=== PATIENT | female | born 1950 | race Hispanic/Latino ===

== ENCOUNTER 2017-02-22 09:55 | Day surgery (SDC) | payer OTHER ==
--- NOTE | 2017-02-19 11:07 | Anesthesia Consultation ---
Anesthesia Consult and Med Hx Date of service: 02/19/17 - Airway Anesthetic Teeth Evaluation: Poor ROM Head & Neck: Adequate Mental/Hyoid Distance: Adequate Mallampati Class: Class II Intubation Access Assessment: Probably Good - Pulmonary Exam CTA: Yes - Cardiac Exam Cardiac Exam: RRR - Pre-Operative Health Status ASA Pre-Surgery Classification: ASA3 Proposed Anesthetic Plan: General - Pulmonary Hx Smoking: Yes Hx Asthma: No SOB: Yes COPD: Yes (MILD) Hx Pneumonia: No Hx Sleep Apnea: Yes - Cardiovascular System Hx Hypertension: Yes - Central Nervous System Hx Psychiatric Problems: No - Other Systems Hx Alcohol Use: No Hx Substance Use: No Hx Cancer: No
[~2017-02-22 09:55] MED LIST: ANCEF/STERILE WATER 2 GM/20 ML 2 GM/20 ML SYRINGE IV NR; MARCAINE-EPI 0.25%-1:200,000 IJ ONE; NACL 0.9% 1000 ML 1,000 ML IV SCH; PEPCID PO NR; VERSED IV NR; ZOFRAN IV PRN
[2017-02-22] MEDS ORDERED: NACL BACTERIOSTATIC INFILTRATI ONE (10:19)
[2017-02-22] MEDS ORDERED: ANCEF/STERILE WATER 2 GM/20 ML 2 GM/20 ML SYRINGE IV NR (10:30)
[2017-02-22] MEDS ORDERED: MARCAINE-EPI 0.25%-1:200,000 INFILTRATI ONE (10:55)
[2017-02-22] MEDS ORDERED: ADRENALIN ONE (10:55)
[2017-02-22] MEDS ORDERED: SUBLIMAZE ONE (11:53)
[2017-02-22] MEDS ORDERED: DIPRIVAN 10 MG/ML IV ONE (11:53)
[2017-02-22] MEDS ORDERED: XYLOCAINE MPF 2% ONE (11:53)
[2017-02-22] MEDS ORDERED: ZOFRAN ONE (11:55)
[2017-02-22] MEDS ORDERED: DECADRON ONE (11:55)
[2017-02-22] MEDS ORDERED: ADRENALIN IV ONE (12:38)
[2017-02-22] MEDS ORDERED: MARCAINE-EPI 0.25%-1:200,000 IJ ONE (12:55)
[2017-02-22] MEDS: DILAUDID IV PRN ×2 (13:20→13:33)
[2017-02-22] MEDS ORDERED: ZOFRAN IV PRN (13:30)
[2017-02-22] MEDS ORDERED: NORCO 5/325 PO PRN (13:34)
[2017-02-22] MEDS ORDERED: TORADOL IV PRN (13:34)
[2017-02-22] MEDS ORDERED: TORADOL ONE (13:41)
[2017-02-22 14:59] VITALS: BP 152/80
--- NOTE | 2017-02-22 16:07 | Post Anesthesia Evaluation ---
- Post Anesthesia Evaluation Patient Participated: Yes Airway Patent: Yes Stable Respiratory Function: Yes Nausea/Vomiting: No Temp > 96.8F: Yes Pain Manageable: Yes Adequeate Hydration: Yes Anesthesia Complications: No Block Receding Appropriately: Not Applicable Patient on Ventilator: No
--- NOTE | 2017-02-22 16:07 | Anesthesia Day of Surgery ---
Anesthesia Day of Surgery - Day of Surgery Patient Examined: Yes Patient H&P Reviewed: Yes Patient is NPO: Yes
--- NOTE | 2017-02-22 16:10 | Operative Report ---
PREOPERATIVE DIAGNOSIS: Right knee degenerative joint disease meniscal tear. POSTOPERATIVE DIAGNOSES: 1. Right knee tear, posterior horn medial meniscus - radial tear extending peripherally. 2. Complex tear of lateral meniscus, diffuse. 3. Grade 3 chondromalacia medial femoral condyle. 4. Grade 3 chondromalacia of the lateral femoral condyle. 5. Grade 3 chondromalacia of patella. 6. Grade 3 chondromalacia of trochlear groove. 7. Extensive synovitis. PROCEDURE PERFORMED: 1. Right knee arthroscopy, partial medial and lateral meniscectomy. 2. Extensive synovectomy. 3. Chondroplasty of medial femoral condyle. 4. Chondroplasty of lateral femoral condyle. 5. Chondroplasty of trochlear groove. 6. Chondroplasty of patella. SURGEON: Sumanth Bailon MD. PROPERTY OFFICER: Hosea Rankin CSA. ANESTHESIA: General. ESTIMATED BLOOD LOSS: Minimal. COMPLICATIONS: None. DESCRIPTION OF PROCEDURE: The patient underwent successful induction of anesthesia. Lower extremity was prepped and draped in usual fashion after being exsanguinated and placed in a leg fuentes. Antibiotics were pre-administered. Pre-assessment exam demonstrated findings noted through standard medial and lateral portals. Extensive synovitis was debrided tricompartmentally. Patellofemoral compartment demonstrated chondromalacia of the patella and the trochlear groove, grade 3 primarily central, general chondroplasty affecting with a Claudia surface of dressing and encountered a chondral scarring noted. The medial compartment demonstrated grade 3 chondromalacia diffusely and debrided in like manner. The meniscus demonstrated the tear of the root extending all the way to the periphery. The flaps were gently debrided to stable rim on either side. Otherwise, the majority of the meniscus well preserved. Lateral compartment demonstrated large grade 3 chondral lesion with unstable chondral flaps lateral femoral condyle and debrided of full resector in the surface. Meniscus demonstrated extensive tearing along the entire lateral horn debrided in combination of full resector surface. Next, once stable rim was achieved line preservation majority of the meniscus 70-80% throughout. Thorough examination and irrigation in the joints was carried out. Both fluoroscopy and intraoperative photos were obtained for documentation. Joints were copiously irrigated and injected with 0.25% Marcaine. Portals were closed with nylon sutures. A sterile dressing was applied. He was taken to the recovery room in satisfactory condition having tolerated the procedure well.Bottom of Form Top of Form Bottom of Form JOB# [id number] RDP/NTS
== END 2017-02-22 14:50 | disposition home or self-care (01) ==
LOC: OR 09:55
PROVIDERS: ATTEND Orthopaedic Surgery
DX: S83.221A Peripheral tear of medial meniscus, current injury, right knee, initial encounter (principal); S83.271A Complex tear of lateral meniscus, current injury, right knee, initial encounter; M65.861 Other synovitis and tenosynovitis, right lower leg; M94.261 Chondromalacia, right knee; J44.9 Chronic obstructive pulmonary disease, unspecified; F17.290 Nicotine dependence, other tobacco product, uncomplicated; I10 Essential (primary) hypertension; G47.33 Obstructive sleep apnea (adult) (pediatric); X58.XXXA Exposure to other specified factors, initial encounter
CPT/HCPCS: 29880; 82962; J0171; J0690; J1100; J1170; J1885; J2250; J2405; J2704; J3010; J7030